=== PATIENT | male | born 1990 | race Caucasian/White ===

== ENCOUNTER 2017-01-16 15:05 | Emergency (ER) | payer SELFPAY ==
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
[~2017-01-16 15:05] MED LIST: ANTIDEPRESSANT; FLEXERIL10 MG PO; FLOMAX0.4 M1 DOB; FLOMAX0.4 M1 PO; LORTAB 10/325MG PO; LORTAB 5/500 TA1 TA1 PO; MACROBID100 MG PO; NO MEDICATIONS; PHENERGAN25 MG PO; TRAZODONE PO; VOLTAREN75 MG PO
== END 2017-01-16 17:09 | disposition home or self-care (01) ==
LOC: SED 15:05
DX: S16.1XXA Strain of muscle, fascia and tendon at neck level, initial encounter (principal); S80.02XA Contusion of left knee, initial encounter; S40.011A Contusion of right shoulder, initial encounter; F17.200 Nicotine dependence, unspecified, uncomplicated; Z87.442 Personal history of urinary calculi; V49.50XA Passenger injured in collision with unspecified motor vehicles in traffic accident, initial encounter; Y92.410 Unspecified street and highway as the place of occurrence of the external cause
CPT/HCPCS: 72040; 73030; 73562; 99284